=== PATIENT | female | born 1990 | race Caucasian/White ===

== ENCOUNTER 2017-02-26 09:58 | Day surgery (SDC) | payer MEDICAID ==
[~2017-02-26 09:58] MED LIST: ANCEF/STERILE WATER 2 GM/20 ML 2 GM/20 ML SYRINGE IV NR
[2017-02-26] MEDS ORDERED: NACL BACTERIOSTATIC INFILTRATI ONE (10:14)
--- NOTE | 2017-02-26 10:29 | Anesthesia Consultation ---
Anesthesia Consult and Med Hx Date of service: 02/26/17 - Airway Anesthetic Teeth Evaluation: Good ROM Head & Neck: Adequate Mental/Hyoid Distance: Adequate Mallampati Class: Class II Intubation Access Assessment: Probably Good - Pre-Operative Health Status ASA Pre-Surgery Classification: ASA2 Proposed Anesthetic Plan: General - Pulmonary Hx Smoking: No Hx Sleep Apnea: No (ISIS PRE SCREEN NEGATIVE) - Cardiovascular System Hx Hypertension: No - Endocrine Hx Renal Disease: Yes (hematuria) - Hematic Hx Sickle Cell Disease: No (SC TRAIT ONLY) - Other Systems Hx Substance Use: Yes (MARIJUANA 2-3 X PER WEEK) Hx Cancer: No
[2017-02-26] MEDS ORDERED: DIPRIVAN 10 MG/ML IV ONE (10:30)
--- NOTE | 2017-02-26 10:30 | Anesthesia Day of Surgery ---
Anesthesia Day of Surgery - Day of Surgery Patient Examined: Yes Patient H&P Reviewed: Yes Patient is NPO: Yes
[2017-02-26] MEDS ORDERED: ZOFRAN ONE (10:31)
[2017-02-26] MEDS ORDERED: DECADRON ONE (10:31)
[2017-02-26] MEDS ORDERED: SUBLIMAZE ONE (10:31)
[2017-02-26] MEDS ORDERED: XYLOCAINE MPF 2% ONE (10:32)
[2017-02-26] MEDS ORDERED: LACTATED RINGERS 1,000 ML IV SCH (11:00)
[2017-02-26] MEDS ORDERED: PEPCID IV NR (11:00)
[2017-02-26] MEDS ORDERED: VERSED IV NR (11:00)
[2017-02-26] MEDS ORDERED: ANCEF/STERILE WATER 2 GM/20 ML 2 GM/20 ML SYRINGE IV NR (11:00)
[2017-02-26] MEDS ORDERED: NORCO 5/325 PO PRN (11:01)
[2017-02-26] MEDS ORDERED: ZOFRAN IV PRN (11:01)
[2017-02-26 11:20] LABS: Hemoglobin 11.4 gm/dl (10.1-14.3)
[2017-02-26] MEDS ORDERED: LASIX ONE (12:28)
--- NOTE | 2017-02-26 12:48 | Post Operative Note ---
Date of procedure: 02/26/17 Pre-op diagnosis: gross heme Post-op diagnosis: same Findings: active bleeding r orifice Procedure: cysto rpgs Anesthesia: GETA Surgeon: AURORA ARREOLA Estimated blood loss: none Pathology: none Condition: stable Disposition: PACU
[2017-02-26] MEDS ORDERED: WATER FOR IRRIG STERILE IR ONE (12:50)
[2017-02-26] MEDS ORDERED: OMNIPAQUE 300 MG/50 ML (CATH LAB) IV ONE (12:50)
--- NOTE | 2017-02-26 12:51 | Discharge Summary ---
Short Stay Discharge Plan Activity: other (no straining ) Weight Bearing Status: Full Weight Bearing Diet: regular Special Instructions: other (brien d/c perla hein;ar ) Follow up with: AURORA ARREOLA MD [Staff Physician] - 7 Days
[2017-02-26] MEDS ORDERED: XYLOCAINE 1%/ EPI 1:100,000 INFILTRATI ONE (13:25)
[2017-02-26] MEDS ORDERED: HEPARIN/NS 5000 UNIT/500ML(CATH LAB) 500 ML IR ONE ×2 (13:25→14:51)
[2017-02-26] MEDS ORDERED: NACL ONE (13:35)
--- NOTE | 2017-02-26 13:38 | Operative Report ---
PREOPERATIVE DIAGNOSIS: Gross hematuria. POSTOPERATIVE DIAGNOSES: Gross hematuria. PROCEDURE: Cystoscopy, retrograde. SURGEON: Lewis Payne MD ANESTHESIA: General. FINDINGS: This is a woman with 3-4 months of gross hematuria. She was seen at another institution, nothing was found. She now presents for cystoscopy. DESCRIPTION OF PROCEDURE: The patient was brought to the operating room and placed on the table. Following induction of anesthesia, placed in lithotomy position, prepped and draped in usual sterile fashion. Cystourethroscopy showed no bladder lesions. Bladder was well visualized with 30-and 70-degree lenses. Upon entering the bladder; however, there was lots of blood filled in the bladder. We saw ____ a jet of blood from the right orifice persistently. Left orifice was clear. The patient tolerated the procedure well. Retrograde showed no filling defects, no evidence of tumors. We consulted Vascular. She will get an angiogram, CT scan. I spoke to her mother and she needs further evaluation. She has actively bleeding right orifice with a sickle cell trait positive, never had this before. PLAN: Vascular consult. JOB# [id number] IMELDA/MAKAYLA
--- NOTE | 2017-02-26 13:48 | Fluoroscopy Report ---
RETROGRADE PYELOGRAM: History: Gross hematuria. There is adequate filling of the ureters and intrarenal collecting systems with no filling defects or anatomic abnormalities identified. Impression: Unremarkable exam.
[2017-02-26 14:23] LABS: Hemoglobin 11.6 gm/dl (10.1-14.3); Mean Corpuscular HGB Conc 32 % (30-34); Mean Corpuscular Hemoglobin 25 pg (28-32); Mean Corpuscular Volume 79 fl (79-97); Platelet Count 194 K/mm3 (140-440); Red Blood Count 4.58 M/mm3 (3.65-5.03); Red Cell Distribution Width 15.3 % (13.2-15.2); White Blood Count 4.5 K/mm3 (4.5-11.0)
[2017-02-26] MEDS ORDERED: NACL 0.9% 500 ML 500 ML ONE (14:26)
[2017-02-26 14:32] LABS: INR 1.08 (0.87-1.13)
[2017-02-26 14:39] LABS: Anion Gap 15 mmol/L; BUN/Creatinine Ratio 11.42; Blood Urea Nitrogen 8 mg/dL (7-17); Calcium 9.1 mg/dL (8.4-10.2); Carbon Dioxide 27 mmol/L (22-30); Chloride 98.6 mmol/L (98-107); Glucose 93 mg/dL (65-100); Potassium 4.2 mmol/L (3.6-5.0); Sodium 136 mmol/L (137-145)
[2017-02-26] MEDS: VERSED ONE ×3 (14:41→14:50)
[2017-02-26] MEDS: SUBLIMAZE ONE ×3 (14:41→14:50)
--- NOTE | 2017-02-26 14:44 | Cat Scan Report ---
CT ANGIOGRAM ABDOMEN AND PELVIS HISTORY: Active bleeding, gross hematuria. TECHNIQUE: Helical CT following IV contrast. Sagittal and coronal reformatted images. Rotational MIP images. FINDINGS: The aorta, celiac axis, SMA, RITA, single left renal artery, and dual right renal arteries are widely patent with less than 10% stenosis. The bilateral common, internal and external iliac arteries are widely patent with less than 10% stenosis. There is no evidence for atherosclerotic disease. No arterial spurt is appreciated to suggest an active site of hemorrhage. The kidneys, ureters and bladder are unremarkable. No renal mass, nephrolithiasis or bladder mass is detected. There are 2 large areas of enhancement within the liver which demonstrate characteristics consistent with cavernous hemangiomas. The remainder of the liver is unremarkable. The biliary system, pancreas, spleen, adrenal glands and bowel loops are within normal limits. There are 2 cysts in the left adnexa measuring 1 cm and 2 cm. The uterus and right adnexa are unremarkable. There is moderate free pelvic fluid. No abscess, free air or adenopathy. IMPRESSION: Normal CTA of the abdomen and pelvis. No active site of hemorrhage is detected. Left ovarian cysts and pelvic ascites. Probable cavernous hemangiomas of the liver.
--- NOTE | 2017-02-26 16:09 | Operative Report ---
Operative Report Operative Report: Procedure: Right renal angiography History/Indication: This is a 26-year-old female who underwent cystoscopy today for hematuria. During the procedure, the urologist noticed significant bleeding from the right ureteral orifice. Renal angiography was requested to evaluate for potential renal source of bleeding. Impression: No active bleeding from the right renal arterial system. Specifically, there is no evidence of pseudoaneurysm, AV fistula, or angiographically visible bleeding mass. Physician: Ritika Adam MD Technique/Procedural Details: Relevant history and imaging were reviewed. Informed consent was obtained after a detailed discussion of the risks and benefits of the procedure. The patient was placed in the supine position on the procedure table. The patient was prepped and draped in the usual sterile fashion. The right common femoral artery was accessed with a 21-gauge needle, which was exchanged for a 4 Cymro exchange dilator. A France wire was advanced into the aorta. The exchange dilator was replaced with a 5 Cymro vascular sheath, and a SOS-2 catheter was advanced over the France wire and used to select the main right renal artery. Angiography was performed. The catheter was then used to select a right renal accessory artery, and angiography was again performed. The images were reviewed. The catheter and sheath were removed, and hemostasis was achieved with manual pressure. A sterile dressing was placed. The patient was transported off the table in stable condition. Discussion: As above, there is no evidence of active bleeding. There are no arterial anomalies, such as a pseudoaneurysm or AV fistula. An accessory right renal artery is noted. During the case, there was a normal filling and contrast excretion from the renal collecting system. Specimen: None EBL: None
--- NOTE | 2017-02-26 16:33 | Post Anesthesia Evaluation ---
- Post Anesthesia Evaluation Patient Participated: Yes Airway Patent: Yes Stable Respiratory Function: Yes Temp > 96.8F: Yes Pain Manageable: Yes Adequeate Hydration: Yes Anesthesia Complications: No Block Receding Appropriately: Not Applicable
--- NOTE | 2017-02-26 17:04 | Consultation ---
History of Present Illness - Reason for Consult Consult date: 02/26/17 hematuria Requesting physician: AURORA ARREOLA - History of Present Illness This is a 26-year-old female with a history significant for sickle cell trait. She has experienced approximately 6 months of intermittent hematuria. She was undergoing cystoscopy today, during which time the urologist noted a significant amount of blood coming from the right ureteral orifice. Medications and Allergies Allergies Allergy/AdvReac Type Severity Reaction Status Date / Time No Known Allergies Allergy Verified 02/23/17 11:30 Home Medications Medication Instructions Recorded Confirmed Last Taken Type No Known Home Medications [No 02/23/17 02/23/17 Unknown History Reported Home Medications] Active Meds: Active Medications Acetaminophen/Hydrocodone Bitart (Brock 5/325) 2 each PO ONCE PRN PRN Reason: Pain, Moderate (4-6) Stop: 02/26/17 18:00 Famotidine (Pepcid) 20 mg IV PREOP NR Stop: 02/26/17 23:00 Last Admin: 02/26/17 10:57 Dose: 20 mg Hydromorphone HCl (Dilaudid) 0.5 mg IV Q10MIN PRN PRN Reason: Pain , Severe (7-10) Stop: 02/26/17 18:00 Lactated Ringer's (Lactated Ringers) 1,000 mls @ 100 mls/hr IV DIRECT MARU Last Admin: 02/26/17 10:55 Dose: 100 mls/hr Cefazolin Sodium (Ancef/Sterile Water 2 Gm/20 Ml) 2 gm in 20 mls @ 80 mls/hr IV PREOP NR PRN Reason: Protocol Stop: 02/26/17 23:59 Midazolam HCl (Versed) 2 mg IV PREOP NR Stop: 02/26/17 23:59 Last Admin: 02/26/17 11:06 Dose: 2 mg Ondansetron HCl (Zofran) 4 mg IV ONCE PRN PRN Reason: Nausea And Vomiting Stop: 02/26/17 18:00 Exam - Constitutional Vitals: Temp Pulse Resp BP Pulse Ox 98.8 F 52 L 12 121/64 100 02/26/17 11:24 02/26/17 13:35 02/26/17 13:35 02/26/17 13:35 02/26/17 13:35 General appearance: Present: no acute distress - EENT Eyes: Present: EOM intact ENT: hearing intact - Neck Neck: Present: supple - Respiratory Respiratory effort: normal - Extremities Extremities: pulses intact - Abdominal General gastrointestinal: Present: soft, non-tender, non-distended - Integumentary Integumentary: Present: clear - Psychiatric Psychiatric: appropriate mood/affect Results - Labs CBC & Chem 7: 02/26/17 14:05 02/26/17 14:05 Labs: Abnormal lab results 02/26/17 02/26/17 Range/Units 14:05 14:05 MCH 25 L (28-32) pg RDW 15.3 H (13.2-15.2) % Sodium 136 L (137-145) mmol/L Assessment and Plan Given the bleeding from the right ureteral orifice, concern is raised for a right renal arterial abnormality such as a pseudoaneurysm or AV malformation. There is no history of intervention on the right kidney to suggest that this could be an iatrogenic injury. The patient will first undergo CT angiography and then proceed to the [facility] for a renal artery angiogram and possible embolization.
[2017-02-26] MEDS: DILAUDID IV PRN ×2 (17:40→18:45)
[2017-02-26 20:04] LABS: Hematocrit 35.7 % (30.3-42.9); Hemoglobin 11.7 gm/dl (10.1-14.3)
[2017-02-26] MEDS ORDERED: PERCOCET 5/325 PO ONE (21:00)
[2017-02-26 21:58] VITALS: BP 125/75
== END 2017-02-26 21:55 | disposition home or self-care (01) ==
LOC: OR 09:58
PROVIDERS: ATTEND Urology
DX: R31.0 Gross hematuria (principal); N28.89 Other specified disorders of kidney and ureter; D57.3 Sickle-cell trait; F12.90 Cannabis use, unspecified, uncomplicated
CPT/HCPCS: 36251; 36415; 52005; 74174; 74420; 80048; 81025; 85014; 85018; 85027; 85610; A4217; C1758; C1769; C1887; J0690; J1100; J1170; J1644; J1940; J2250; J2405; J2704; J3010; J7040; J7120; Q9967; 36252